=== PATIENT | male | born 1990 | race Caucasian/White ===

== ENCOUNTER 2020-12-30 16:25 | Emergency (ER) | payer MEDICAID ==
[~2020-12-30] VITALS: Ht 177.8 cm; Wt 65.8 kg
[2020-12-30 16:50] VITALS: BP 116/97
--- NOTE | 2020-12-30 16:55 | NUR ---
30 y/o M coming in from home with c/c right ear ache. Patient presents A&Ox4, ambulatory and states a fly flew into his right ear and became trapped in there. Denies pain, states discomfort/ear ache when fly is moving around in ear. Denies any other medical complaint. Pt attempted to remove fly by water rinse and Q-tip without any relief. PMH/Sx/Meds: Denies NKA
--- NOTE | 2020-12-30 16:55 | NUR ---
KARLEY Quinn is evaluating patient in triage room.
--- NOTE | 2020-12-30 16:56 | NUR ---
Patient ambulated to bed 09 with steady/even gait.
[2020-12-30] MEDS ORDERED: LIDOCAINE 2% 1000 MG/50 ML VIAL INJ ONE ×2 (17:21→17:25)
[2020-12-30] MEDS ORDERED: IBUP-1842 PO (17:41)
[2020-12-30] MEDS ORDERED: OFLO5SOL27 RIGHT EAR (17:41)
[2020-12-30 18:09] VITALS: BP 116/97
--- NOTE | 2020-12-30 18:13 | NUR ---
Patient discharged with v/s stable. Written and verbal after care instructions given and explained. Patient alert, oriented and verbalized understanding of instructions. Ambulatory with steady gait. All questions addressed prior to discharge. ID band removed. Patient advised to follow up with PMD. Rx of IBUPROFEN, OFLOXACIN given. Patient educated on indication of medication including possible reaction and side effects. Opportunity to ask questions provided and answered.
[2020-12-31] MEDS ORDERED: LIDOCAINE 5% 1 EA PATCH TP SCH (09:00)
== END 2020-12-30 18:00 | disposition home or self-care (01) ==
LOC: MED 16:25
DX: T16.1XXA Foreign body in right ear, initial encounter (principal); Z79.899 Other long term (current) drug therapy; X58.XXXA Exposure to other specified factors, initial encounter; Y93.89 Activity, other specified; Y92.89 Other specified places as the place of occurrence of the external cause; Y99.8 Other external cause status
CPT/HCPCS: 69200; 99284; J2001